=== PATIENT | female | born 1985 | race African-American/Black ===

== ENCOUNTER 2016-09-04 16:55 | Emergency (ER) | payer OTHER ==
[~2016-09-04] VITALS: Ht 162.6 cm; Wt 120.0 kg
[~2016-09-04 16:55] MED LIST: CEPALOZ SUCK-ON; CHOL1CAP6 PO; FENO145T2 PO; GLUC1000 PO; IBUP-232 PO; LIOT25TA PO; MAGN400 PO; PENI500T PO
[2016-09-04 17:02] VITALS: BP 141/89; PULSE 100; RESP 17; TEMP 98.6; O2SAT 98
[2016-09-04] MEDS ORDERED: FENO145T2 PO (17:31)
[2016-09-04] MEDS ORDERED: METF500T PO (17:31)
[2016-09-04] MEDS ORDERED: LEVO25TA4 PO (17:31)
[2016-09-04] MEDS ORDERED: METF1000 PO (17:31)
--- NOTE | 2016-09-04 17:31 | PD ---
HPI Chief Complaint: Pain: Acute or Chronic Time Seen by Provider: 17:31 Travel History International Travel<30 days: No Contact w/Intl Traveler<30days: No Traveled to known affect area: No History of Present Illness HPI 31-year-old Afro-[place]ron[place] female presents the emergency Department with 3 weeks of increasingly worsening right pain, swelling, and stiffness. Patient denies any specific injury or strain. Patient denies any specific increase in exercise which would've caused her issue. She has no fever or chills. She has no history of infection. She has been trying [id number] icy hot, ice packs, and [id number] neoprene knee brace with some mild improvement, but overall she seems to be worsening. Patient states the pain is a stiffness, and her knee seems to lock when she first gets up. She denies crepitus in the joint. She does have a distant history of an injury to the knee when she was playing basketball in high school. The pain is described as a 7/10 at worse currently is a 4/10. She has no known drug allergies. PFSH Past Medical History Hx Anticoagulant Therapy: No Cardiovascular Problems: No High Cholesterol: Yes Chemotherapy: No Cerebrovascular Accident: No Diabetes: Yes Diminished Hearing: No Headaches: Yes Respiratory: No Immunizations Current: Yes Thyroid Disease: Yes (HYPO) Triglycerides - High: Yes ?: Unknown LMP: 07/18/16 : 0 Para: 0 Miscarriage: 0 : 0 Past Surgical History Hysterectomy: No Social History Alcohol Use: Yes (Socially) Tobacco Use: No (never) Substance Use: No Allergies-Medications (Allergen,Severity, Reaction): Coded Allergies: No Known Allergies (Verified , 09/04/16) Reported Meds & Prescriptions Reported Meds & Active Scripts Active Reported Levothyroxine (Levothyroxine Sodium) 25 Mcg Tab 25 Mcg PO DAILY Fenofibrate 145 Mg Tab 145 Mg PO DAILY Metformin (Metformin HCl) 500 Mg Tab 500 Mg PO DAILY With a meal Metformin (Metformin HCl) 1,000 Mg Tab 1,000 Mg PO BIDPC With meals Review of Systems Except as stated in HPI: all other systems reviewed are Neg General / Constitutional: No: Fever Eyes: No: Visual changes HENT: No: Headaches Cardiovascular: No: Chest Pain or Discomfort Respiratory: No: Shortness of Breath Gastrointestinal: No: Abdominal Pain Genitourinary: No: Dysuria Musculoskeletal: Positive: Arthralgias, Limited ROM, Pain Skin: No Rash Neurologic: No: Weakness Psychiatric: No: Depression Endocrine: No: Polydipsia Hematologic/Lymphatic: No: Easy Bruising Physical Exam Narrative GENERAL: Patient appears in no acute distress. SKIN: Warm and dry. Normal color. Normal turgor. HEAD: Atraumatic. Normocephalic. EYES: Pupils equal and round. No scleral icterus. No injection or drainage. ENT: No nasal bleeding or discharge. Mucous membranes pink and moist. Pharynx is clear. NECK: Trachea midline. Supple nontender. CARDIOVASCULAR: Regular rate and rhythm. RESPIRATORY: No accessory muscle use. MUSCULOSKELETAL: Extremities without clubbing, cyanosis, or edema. No obvious deformities. Patient right knee shows some suprapatellar effusion with mild tenderness. No significant laxity. Negative draw test. Negative Lockman's test. No specific joint line tenderness. Range of motion is mildly limited secondary to swelling. No other significant findings noted. NEUROLOGICAL: Awake and alert. No obvious cranial nerve deficits. Motor grossly within normal limits. Five out of 5 muscle strength in the arms and legs. Normal speech. PSYCHIATRIC: Appropriate mood and affect; insight and judgment normal. Data Data Last Documented VS Vital Signs Date Time Temp Pulse Resp B/P Pulse Ox O2 Delivery O2 Flow Rate FiO2 09/04/16 17:02 98.6 100 17 141/89 98 Orders Splint Or Brace Apply/Monitor (09/04/16 17:38) MDM Medical Decision Making Medical Screen Exam Complete: Yes Emergency Medical Condition: Yes Differential Diagnosis Right knee effusion. Right knee stiffness. Arthrosis. Possible internal derangement. Possible cartilage injury. Narrative Course Patient is medically stable at time of exam. Radiographic imaging is not felt warranted at this time based on my history and physical. Recommend conservative treatment for this patient with a knee immobilizer and ibuprofen 800 mg 3 times daily with food for the next week. Patient is to elevate and ice this as much as possible. Work note is given. Patient is to follow with the primary care physician or orthopedic if symptoms continue to be bothersome. Diagnosis Primary Impression: Effusion, right knee Referrals: Trey Whaley MD as needed Patient Instructions: General Instructions, Knee Immobilizer (ED), Knee Sprain (ED) Additional Instructions: Radiographic imaging is not felt warranted at this time based on my history and physical. Recommend conservative treatment for this patient with a knee immobilizer and ibuprofen 800 mg 3 times daily with food for the next week. Patient is to elevate and ice this as much as possible. Work note is given. Patient is to follow with the primary care physician or orthopedic if symptoms continue to be bothersome. Med/Other Pt SpecificInfo: Prescription(s) given Disposition: 01 DISCHARGE HOME Condition: Stable Uche Mclean Sep 04, 2016 17:31
[2016-09-04] MEDS ORDERED: IBUP800T23 PO (17:46)
== END 2016-09-04 18:02 | disposition home or self-care (01) ==
LOC: PHED 16:55 → PHEFT 18:02
DX: M25.461 Effusion, right knee (principal)
CPT/HCPCS: 99283; L1830